=== PATIENT | male | born 2000 | race Hispanic/Latino ===

== ENCOUNTER 2025-08-31 10:47 | Emergency (ER) | payer SELFPAY ==
[2025-08-31 10:55] VITALS: BP 138/70
--- NOTE | 2025-08-31 12:19 | ED.GENMED ---
History of Present Illness
General
Chief Complaint: Musculo-Skeletal Complaint
Source: patient
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
Time Seen by Provider: 08/31/25 11:12
Nursing documentation reviewed up to this point in time: agreed with
History of Present Illness
History of Present Illness:
25-year-old male presenting to the emergency department today with concerns of right index finger pain after hitting his finger with a hammer prior to arrival. Ongoing pain to the area no additional trauma. No breaks in the skin.
Review of Systems
Review of Systems
Allergies reviewed?: Yes
All Other Systems: ROS reviewed and negative except as documented in HPI and ROS
Phy Exam
Physical Exam
Physical Exam:
GENERAL: Alert , in no apparent distress
EYE: pupils equal and reactive
NECK: Supple, no significant adenopathy.
ENT: o/p clr, mmm.
CARDIAC: Regular rate and rhythm .
LUNGS: Clear breath sounds bilaterally, no acute respiratory distress, no wheezes/rales/rhonchi
ABDOMEN: Soft, without focal tenderness, no r/g, no cvat
NEUROLOGICAL: Alert and oriented, no focal neuro deficits
SKIN: Warm and dry, skin intact.
MUSCULOSKELETAL: Swelling and pain to the middle phalanx of the right index finger. Increased discomfort with any movement., well perfused.
PSYCH: Normal and appropriate interaction.
Course
Orders/Labs/Results
Orders:
Orders
08/31/25 10:57
CR Finger(s)/thumb Min 2 Vw Rt Urgent
Comment:
Reason For Exam: Injury
Indicate Which Finger:: Index Finger
Vital Signs
Initial and Last Documented VS:
Initial Vital Signs
Temp Pulse Resp BP Pulse Ox
98.4 F 54 16 138/70 98
08/31/25 10:55 08/31/25 10:55 08/31/25 10:55 08/31/25 10:55 08/31/25 10:55
Last Documented Vital Signs
Temp Pulse Resp BP Pulse Ox
98.4 F 54 16 138/70 98
08/31/25 10:55 08/31/25 10:55 08/31/25 10:55 08/31/25 10:55 08/31/25 12:20
Procedures
Splint Check
Splint checked by provider?: Yes
Circulation/Movement/Sensation post splint application: brisk cap refill and full sensation
MDM/Problems Addressed
MDM/Problems Addressed:
25-year-old male presenting to the emergency department after injuring his right index finger with a hammer prior to arrival. Patient found to have a comminuted fracture to his middle phalanx. Patient was splinted otherwise will follow-up closely
with orthopedics. Return precautions given.
*Pulse Oximetry
SaO2: 98
Patient hypoxic: no (98)
*Critical Care Note
Total Time (30-74mins, 75-104mins- exclusive of procedures): Not Applicable
ED Attending Note
-
Portions of this chart may have been created with voice recognition software.� Occasional wrong word or��sound alike� substitutions may have occurred due to the inherent limitations of voice recognition software.
Discharge Plan
Departure
Patient Disposition: Home (Routine Discharge)
Date of Disposition: 08/31/25
Time of Disposition: 12:19
Patient with high blood pressure during this ER visit?: No
Condition: Good
Covid-19: Not Applicable
Discharge Problem:
Finger fracture
Instructions: Finger Fracture ED
Referrals:
Lincoln Boston MD [Active, Orthopedics] - Follow up in 5-7 days
NONE,* [Family Provider, Internal Medicine]
Stand Alone Forms: Return to Work
Activity Restrictions/Additional Instructions:
You came to the emergency department today with concerns of a finger injury. You are found have a broken bone to your middle phalanx. Please wear the splint until orthopedic follow-up for further recommendations. Return for any worsening, new or
concerning symptoms.
Interventions
Interventions:
ED-Musculoskeletal Assessment Last Done: 08/31/25 11:10
Discharge Date and Time
Print Language: SOMALI
== END 2025-08-31 12:45 | disposition home or self-care (01) ==
LOC: EMR 10:47
PROVIDERS: EMERGENCY PHYSICIAN Student in an Organized Health Care Education/Training Program
DX: S62.650A Nondisplaced fracture of middle phalanx of right index finger, initial encounter for closed fracture (principal); W27.8XXA Contact with other nonpowered hand tool, initial encounter
CPT/HCPCS: 99283; 29130; 73140